=== PATIENT | female | born 1990 | race African-American/Black ===

== ENCOUNTER → 2016-08-08 | Outpatient (CLI) | payer OTHER ==
[2015-05-21 12:30] VITALS: BP 120/80
--- NOTE | 2016-08-08 17:18 | RAD ---
EXAM: Pelvic ultrasound HISTORY: Uterine leiomyoma. COMPARISON: None. FINDINGS: Sonographic evaluation of the pelvis was performed transabdominally and transvaginally. The uterus is anteverted and measures 12.5 x 9.8 x 8.5 cm. A dominant myometrial fibroid along the anterior fundus measures 8.7 x 7.7 x 8.0 cm. Rim calcification is suspected. This distorts the endometrial stripe, which is not well seen. There is no significant free fluid. The right ovary measures 4.0 x 1.8 x 1.6 cm. The left ovary measures 3.8 x 2.0 x 1.8 cm. There is normal Doppler flow bilaterally. There are no suspicious lesions. IMPRESSION: 1. A dominant myometrial fibroid measures 8.7 cm. It distorts the endometrial stripe which is not well seen.
== END | disposition home or self-care (01) ==
LOC: US 08:00
PROVIDERS: ATTEND Family Medicine
DX: D25.9 Leiomyoma of uterus, unspecified (principal)
CPT/HCPCS: 76830; 76856

== ENCOUNTER → 2016-10-23 | Outpatient (CLI) | payer OTHER ==
[2015-05-21 12:30] VITALS: BP 120/80
--- NOTE | 2016-10-23 15:39 | RAD ---
Exam performed: Pelvic Ultrasound. Indication: IUD localization of a known primary mass Date of Service: 10/23/16. Pelvic ultrasound from 08/08/16 Technique: Transabdominal and transvaginal Findings: The uterus is anteverted and [id number] x 10.0 x 7.7 cm. The endometrial stripe is distorted and obscured by the presence of a large anterior wall of the mass likely a fibroid measuring 8.0 x 6.9 x 5.3 cm. Portion of the IUD is seen in the cervix. Both ovaries are normal. The right ovary measures 4.3 x 2.5 x 2.1 cm , the left ovary measures 3.0 x 2.0 x 1.7 cm. There is no solid or cystic mass lesion in the ovaries. No free fluid Impression: 1. Large solid mass, likely fibroid in the anterior myometrium limiting evaluation of endometrial cavity. Portion of the IUD is seen in the cervix.
== END | disposition home or self-care (01) ==
LOC: US 14:53
PROVIDERS: ATTEND Family Medicine
DX: Z30.431 Encounter for routine checking of intrauterine contraceptive device (principal); R19.00 Intra-abdominal and pelvic swelling, mass and lump, unspecified site
CPT/HCPCS: 76830; 76856